=== PATIENT | female | born 1995 | race Caucasian/White ===

== ENCOUNTER → 2017-03-03 | Outpatient (REF) | payer OTHER ==
[2017-03-03 18:10] LABS: BASO % 0.2 % (0.0-1.0); EOS # 0.1 K/mm3 (0.0-0.50); EOS % 1.3 % (0.0-3.0); LARGE UNSTAINED CELL # 0.2 K/mm3 (0.0-0.4); LARGE UNSTAINED CELL % 1.7 % (0.0-4.0); LYMPH # 2.8 K/mm3 (1.5-6.5); LYMPH % 32.9 % (24.0-44.0); MEAN CORPUSCULAR HEMOGLOBIN 30.2 pg (27.0-33.0); MEAN CORPUSCULAR HGB CONC 32.5 g/dl (32.0-36.5); MEAN CORPUSCULAR VOLUME 92.7 fl (80.0-96.0); MONO # 0.5 K/mm3 (0.0-0.8); MONO % 5.4 % (0.0-5.0); NEUTROPHILS % 58.5 % (36.0-66.0); PLATELET COUNT, AUTOMATED 238 k/mm3 (150-450); RED CELL DISTRIBUTION WIDTH 12.2 % (11.5-14.5); WHITE BLOOD COUNT 8.6 K/mm3 (4.0-10.0)
[2017-03-03 18:20] LABS: ALBUMIN 4.1 GM/DL (3.2-5.2); ALBUMIN/GLOBULIN RATIO 1.17 (1.00-1.93); ALKALINE PHOSPHATASE 74 U/L (45-117); ALT/SGPT 21 U/L (12-78); AMYLASE 55 U/L (25-115); ANION GAP 6 MEQ/L (8-16); AST/SGOT 14 U/L (15-37); BILIRUBIN,TOTAL 0.3 MG/DL (0.2-1.0); BLOOD UREA NITROGEN 14 MG/DL (7-18); CALCIUM LEVEL 8.7 MG/DL (8.5-10.1); CARBON DIOXIDE LEVEL 27 MEQ/L (21-32); CHLORIDE LEVEL 106 MEQ/L (98-107); CREATININE FOR GFR 0.84 MG/DL (0.55-1.02); FERRITIN 27 NG/ML (8-252); GLOMERULAR FILTRATION RATE > 60.0 (>60); GLUCOSE, FASTING 93 MG/DL (70-105); MAGNESIUM LEVEL 2.1 MG/DL (1.8-2.4); SODIUM LEVEL 139 MEQ/L (136-145); THYROXINE (T4) 7.9 UG/DL (4.5-12.0); TOTAL PROTEIN 7.6 GM/DL (6.4-8.2)
== END ==
LOC: M SFHCCLAY 14:09
PROVIDERS: ATTEND Family Medicine
DX: R10.84 Generalized abdominal pain (principal); R53.83 Other fatigue

== ENCOUNTER → 2017-05-31 | Outpatient (REF) | payer OTHER | LOC: M SFHCLERA 11:53 | PROVIDERS: ATTEND Nurse Practitioner Family | DX: R10.9 Unspecified abdominal pain (principal) ==

== ENCOUNTER 2017-08-17 19:54 | Emergency (ER) | payer MEDICAID, OTHER, SELFPAY ==
[~2017-08-17] VITALS: Ht 162.6 cm; Wt 63.6 kg
[2017-08-17 19:55] VITALS: BP 143/76
== END 2017-08-17 22:23 | disposition left against medical advice (07) ==
LOC: M ED 19:54
DX: R10.9 Unspecified abdominal pain (principal); Z53.21 Procedure and treatment not carried out due to patient leaving prior to being seen by health care provider

== ENCOUNTER → 2017-09-30 | Outpatient (REF) | payer MEDICAID, OTHER | LOC: M SFHCLERA 11:57 | PROVIDERS: ATTEND Nurse Practitioner Family | DX: J02.9 Acute pharyngitis, unspecified (principal); L29.8 Other pruritus ==

== ENCOUNTER → 2018-12-09 | Outpatient (REF) | payer OTHER, MEDICAID | LOC: M LAB REF 12:38 | PROVIDERS: ATTEND Specialist | DX: R87.613 High grade squamous intraepithelial lesion on cytologic smear of cervix (HGSIL) (principal) ==

== ENCOUNTER → 2018-12-29 | Outpatient (CLI) | payer OTHER ==
--- NOTE | 2018-12-29 11:30 | REP ---
Pelvic ultrasound including transabdominal, endovaginal and Doppler ultrasound assessment for pelvic and perineal pain: The bladder is adequately distended. The uterus is anteverted. The uterus is normal size measuring 5.9 x 2.6 x 4.0 cm. The endometrium is not thickened measuring 4 mm. There is an IUD in the endometrial canal in satisfactory position. Right ovary: The right ovary measures 2.4 by 1.0 by 1.7 cm and is normal size. There is no dominant mass or cyst. There is vascular flow with the Doppler resistive index of the parenchymal arteries measuring 0.50. Left ovary: The left ovary measures 3.6 by 2.7 x 3.6 cm and is normal size. There is a cyst measuring up to 2.8 cm in diameter. There is no dominant mass. There is vascular flow with the Doppler resistive index of the parenchymal arteries measuring 0.40. There is no free fluid in the pelvis. Impression: There is a 2.8 cm left ovarian cyst. There is an IUD in satisfactory position within the endometrial canal. Electronically Signed by Kamron Dalton MD 12/29/2018 11:22 A
== END ==
LOC: M RAD 09:53
PROVIDERS: ATTEND Specialist
DX: R10.2 Pelvic and perineal pain (principal); N83.202 Unspecified ovarian cyst, left side; Z97.5 Presence of (intrauterine) contraceptive device

== ENCOUNTER → 2019-03-01 | Outpatient (REF) | payer OTHER, MEDICAID | LOC: M SFHCCLAY 08:10 | PROVIDERS: ATTEND Family Medicine | DX: Z68.31 Body mass index [BMI] 31.0-31.9, adult (principal) ==

== ENCOUNTER → 2019-04-21 | Outpatient (REF) | payer OTHER, MEDICAID | LOC: M LAB REF 18:47 | PROVIDERS: ATTEND Specialist | DX: Z12.4 Encounter for screening for malignant neoplasm of cervix (principal) ==

== ENCOUNTER → 2020-01-20 | Outpatient (REF) | payer OTHER, MEDICAID | LOC: M SFHCWAGY 19:27 | PROVIDERS: ATTEND Nurse Practitioner Family | DX: Z12.4 Encounter for screening for malignant neoplasm of cervix (principal) ==

== ENCOUNTER → 2020-05-04 | Outpatient (REF) | payer OTHER | LOC: M LABDRAWC 11:10 | PROVIDERS: ATTEND Advanced Practice Midwife | DX: N91.2 Amenorrhea, unspecified (principal) ==

== ENCOUNTER 2020-05-06 13:43 | Emergency (ER) | payer OTHER ==
[~2020-05-06] VITALS: Ht 162.6 cm; Wt 75.0 kg
[2020-05-06 14:14] LABS: BASO % 0.2 % (0.0-1.0); EOS % 0.4 % (0.0-3.0); HEMATOCRIT 41.5 % (36.0-47.0); HEMOGLOBIN 14.3 g/dl (12.0-15.5); LYMPH # 3.2 10^3/uL (1.5-5.0); LYMPH % 30.8 % (24.0-44.0); MEAN CORPUSCULAR HEMOGLOBIN 31.2 pg (27.0-33.0); MEAN CORPUSCULAR HGB CONC 34.5 g/dl (32.0-36.5); MEAN CORPUSCULAR VOLUME 90.4 fl (80.0-96.0); MONO # 0.9 10^3/uL (0.0-0.8); MONO % 8.3 % (0.0-5.0); NEUTROPHILS # 6.2 10^3/uL (1.5-8.5); NEUTROPHILS % 60.1 % (36.0-66.0); PLATELET COUNT, AUTOMATED 252 10^3/uL (150-450); RED BLOOD COUNT 4.59 10^6/uL (4.00-5.40); WHITE BLOOD COUNT 10.4 10^3/uL (4.0-10.0)
[2020-05-06 14:39] LABS: BLOOD UREA NITROGEN 17 MG/DL (7-18); CALCIUM LEVEL 9.3 MG/DL (8.5-10.1); CARBON DIOXIDE LEVEL 24 MEQ/L (21-32); CHLORIDE LEVEL 109 MEQ/L (98-107); CREATININE FOR GFR 0.78 MG/DL (0.55-1.30); GLOMERULAR FILTRATION RATE > 60.0 (>60); GLUCOSE, FASTING 92 MG/DL (70-100); HCG, SERUM QUANTITATIVE 4 MIU/ML; POTASSIUM SERUM 3.7 MEQ/L (3.5-5.1); SODIUM LEVEL 138 MEQ/L (136-145)
[2020-05-06 16:08] VITALS: BP 142/86
--- NOTE | 2020-05-06 23:03 | REP ---
FIRST TRIMESTER OBSTETRIC SONOGRAPHY: HISTORY: Vaginal bleeding. 4 weeks gestation. Beta hCG level 2 days prior 35. FINDINGS: Transabdominal and transvaginal scanning are performed. Uterus is normal in size and empty with dimensions of 7.9 x 2.9 x 4.0 cm. Endometrial echo is 0.7 cm thick. No intrauterine gestational sac is seen. No free fluid is seen. No focal uterine mass is observed. Normal ovaries are seen. Right ovarian dimensions are 1.9 x 1.9 x 1.9 cm. Left ovary measures 2.7 x 1.5 x 2.1 cm. IMPRESSION: No morphologic abnormality seen. No gestational sac noted within the uterus. No free fluid or adnexal mass. Electronically Signed by Abelino Dawn MD 05/07/2020 07:59 A
== END 2020-05-06 16:12 | disposition home or self-care (01) ==
LOC: M ED 13:43
DX: O02.81 Inappropriate change in quantitative human chorionic gonadotropin (hCG) in early pregnancy (principal)

== ENCOUNTER → 2020-07-20 | Outpatient (REF) | payer OTHER ==
[2020-07-20 19:33] LABS: BASO % 0.2 % (0.0-1.0); EOS # 0.1 10^3/uL (0.0-0.5); EOS % 0.4 % (0.0-3.0); HEMATOCRIT 41.4 % (36.0-47.0); HEMOGLOBIN 13.9 g/dl (12.0-15.5); LYMPH # 2.2 10^3/uL (1.5-5.0); LYMPH % 19.5 % (24.0-44.0); MEAN CORPUSCULAR HEMOGLOBIN 31.3 pg (27.0-33.0); MEAN CORPUSCULAR HGB CONC 33.6 g/dl (32.0-36.5); MEAN CORPUSCULAR VOLUME 93.2 fl (80.0-96.0); MONO # 0.7 10^3/uL (0.0-0.8); MONO % 6.3 % (0.0-5.0); NEUTROPHILS # 8.2 10^3/uL (1.5-8.5); NEUTROPHILS % 73.1 % (36.0-66.0); PLATELET COUNT, AUTOMATED 260 10^3/uL (150-450); RED BLOOD COUNT 4.44 10^6/uL (4.00-5.40); WHITE BLOOD COUNT 11.2 10^3/uL (4.0-10.0)
[2020-07-20 20:44] LABS: HEPATITIS C VIRUS ABY INDEX 0.1 INDEX (<0.8); HIV 1&2 SCREEN CENTAUR NEGATIVE (NEGATIVE)
[2020-07-20 21:24] LABS: CHLAMYDIA DNA AMPLIFICATION NEGATIVE (NEGATIVE); GC DNA AMPLIFICATION NEGATIVE (NEGATIVE)
== END ==
LOC: M LABSMT 16:51 → M LABDRAWC 16:51
PROVIDERS: ATTEND Advanced Practice Midwife
DX: Z34.81 Encounter for supervision of other normal pregnancy, first trimester (principal); Z3A.00 Weeks of gestation of pregnancy not specified

== ENCOUNTER → 2020-08-03 | Outpatient (REF) | payer OTHER | LOC: M SFHCLERA 15:48 | PROVIDERS: ATTEND Physician Assistant | DX: J02.9 Acute pharyngitis, unspecified (principal) ==

== ENCOUNTER → 2020-08-23 | Outpatient (CLI) | payer OTHER | LOC: M PLALAB 09:45 | PROVIDERS: ATTEND Advanced Practice Midwife | DX: Z34.81 Encounter for supervision of other normal pregnancy, first trimester (principal); Z3A.00 Weeks of gestation of pregnancy not specified ==

== ENCOUNTER → 2020-10-04 | Outpatient (CLI) | payer OTHER ==
--- NOTE | 2020-10-04 15:46 | REP ---
INDICATION: ANATOMY COMPARISON: None. TECHNIQUE: Transabdominal obstetrical ultrasound with color Doppler evaluation. FINDINGS: Examination demonstrates a single live intrauterine in variable presentation. motion is identified by technologist. Placenta is noted anterior and grade 0 without evidence for placenta previa or abruption. Amniotic fluid volume is normal. Cervix measures 3.7 cm in length and appears closed.. Gestational age by LMP 18 weeks 2 days with AMINA 03/05/2021. Gestational age by current measurements 18 weeks 2 days with AMINA 03/05/2021. FHR equals 155 beats per minute. BPD: 4.2 cm 18 weeks 4 days HC: 15.3 cm 18 weeks 2 days AC: 12.7 cm 18 weeks 2 days FL: 2.7 cm 18 weeks 1 day HL: 2.6 cm 18 weeks 2 days HC/AC: 1.21 Estimated weight 231 grams (42ndpercentile). Anatomical assessment demonstrates normal structures including cranium, choroid plexus, cavum, cerebellum/posterior fossa, four-chamber heart/left ventricular outflow tract, diaphragm, stomach, cord insertion/three-vessel cord, kidneys/bladder, and extremities. Limited incomplete evaluation of the facial features, right cardiac ventricular outflow tract and spine. IMPRESSION: Single live intrauterine in variable presentation demonstrating appropriate estimated weight. Anatomical limitations as described above warrant re-evaluation and follow-up. <Electronically signed by Vidal Hernandez > 10/04/20 [id number]
== END ==
LOC: M WHC 13:19
PROVIDERS: ATTEND Specialist
DX: Z34.02 Encounter for supervision of normal first pregnancy, second trimester (principal); Z36.89 Encounter for other specified antenatal screening; Z3A.18 18 weeks gestation of pregnancy

== ENCOUNTER → 2020-10-18 | Outpatient (CLI) | payer OTHER ==
--- NOTE | 2020-10-19 07:28 | REP ---
INDICATION: F/U ANATOMY COMPARISON: 10/04/2020 TECHNIQUE: Transabdominal obstetrical ultrasound with color Doppler evaluation. FINDINGS: Examination demonstrates a single live intrauterine in cephalic presentation. motion is identified by technologist. Placenta is noted anterior and grade 1 without evidence for placenta previa or abruption. Amniotic fluid volume is normal. Cervix measures 3.2 cm in length and appears closed.. Gestational age by LMP 20 weeks 2 days with AMINA 03/05/2021. Gestational age by current measurements 20 weeks 3 days with AMINA 03/04/2021. FHR equals 140 beats per minute. Estimated weight 324 grams (36thpercentile). Anatomical assessment demonstrates normal structures including facial features, heart/ventricular outflow tracts, anterior abdominal wall, and spine. IMPRESSION: Single live intrauterine in cephalic presentation demonstrating appropriate estimated weight and growth. In conjunction with prior examination anatomical assessment is essentially complete and normal. <Electronically signed by Vidal Hernandez > 10/19/20 [id number]
== END ==
LOC: M WHC 11:54
PROVIDERS: ATTEND Advanced Practice Midwife
DX: Z34.92 Encounter for supervision of normal pregnancy, unspecified, second trimester (principal); Z3A.20 20 weeks gestation of pregnancy

== ENCOUNTER → 2020-11-13 | Outpatient (CLI) | payer SELFPAY | LOC: M LABSMTC 14:02 | PROVIDERS: ATTEND Pediatrics | DX: Z20.828 Contact with and (suspected) exposure to other viral communicable diseases (principal) ==

== ENCOUNTER → 2020-12-20 | Outpatient (REF) | payer OTHER ==
[2020-12-20 15:29] LABS: HEMATOCRIT 38.5 % (36.0-47.0); HEMOGLOBIN 13.1 g/dl (12.0-15.5); MEAN CORPUSCULAR HEMOGLOBIN 32.1 pg (27.0-33.0); MEAN CORPUSCULAR VOLUME 94.4 fl (80.0-96.0); PLATELET COUNT, AUTOMATED 248 10^3/uL (150-450); RED BLOOD COUNT 4.08 10^6/uL (4.00-5.40); WHITE BLOOD COUNT 13.3 10^3/uL (4.0-10.0)
== END ==
LOC: M PLALAB 13:16
PROVIDERS: ATTEND Advanced Practice Midwife
DX: Z34.82 Encounter for supervision of other normal pregnancy, second trimester (principal); Z3A.25 25 weeks gestation of pregnancy

== ENCOUNTER 2021-01-06 18:47 | Outpatient (CLI) | payer OTHER ==
[~2021-01-06] VITALS: Ht 162.6 cm; Wt 87.3 kg
[2021-01-06 19:07] VITALS: BP 125/81
--- NOTE | 2021-01-06 20:32 | IPNPDOC ---
Obstetrical Progress Note Date of Service Jan 06, 2021 Subjective 25 yo at 31 weeks with decreased movement for 1 day. Objective Vital Signs Date Time Temp Pulse Resp B/P (MAP) Pulse Ox O2 Delivery O2 Flow Rate FiO2 01/06/21 19:07 98.5 104 16 125/81 (96) Assessment Variability: Moderate Accelerations: Positive Decelerations: None Heart Rate Tracing: Category I Tocometer Contractions: No Assessment and Plan Additional Comments 25 yo G1 at 31 weeks with decreased movement. Testing is reassuring. d/c home f-u office as scheduled ROSEMARY BETHEA MD Jan 06, 2021 20:32
== END 2021-01-06 20:20 | disposition home or self-care (01) ==
LOC: M LDO 18:47
PROVIDERS: ATTEND Specialist
DX: O36.8130 Decreased fetal movements, third trimester, not applicable or unspecified (principal); Z3A.31 31 weeks gestation of pregnancy

== ENCOUNTER 2021-02-01 11:59 | Outpatient (CLI) | payer OTHER ==
[~2021-02-01] VITALS: Ht 162.6 cm; Wt 91.7 kg
[2021-02-01 12:32] VITALS: BP 129/84
[2021-02-01] MEDS ORDERED: OMEP40CA97 PO (12:39)
[2021-02-01] MEDS ORDERED: PRENTAB9 PO (12:39)
[2021-02-01] MEDS ORDERED: ACET-897 PO (12:39)
[2021-02-01] MEDS ORDERED: LACTATED RINGER'S 1000 ML IV ONE (12:55)
[2021-02-01] MEDS ORDERED: BUTORPHANOL 2 MG/ML INJ (J0595) IV ONE (13:25)
[2021-02-01] MEDS ORDERED: PROMETHAZINE INJ 25 MG/ML VIAL (J2550) IV ONE (13:25)
[2021-02-01 13:34] LABS: HEMATOCRIT 40.3 % (36.0-47.0); HEMOGLOBIN 13.6 g/dl (12.0-15.5); MEAN CORPUSCULAR HEMOGLOBIN 31.1 pg (27.0-33.0); MEAN CORPUSCULAR HGB CONC 33.7 g/dl (32.0-36.5); MEAN CORPUSCULAR VOLUME 92.2 fl (80.0-96.0); PLATELET COUNT, AUTOMATED 245 10^3/uL (150-450); RED BLOOD COUNT 4.37 10^6/uL (4.00-5.40); WHITE BLOOD COUNT 14.6 10^3/uL (4.0-10.0)
[2021-02-01] MEDS: ONDANSETRON 4MG/2ML VIAL IV PRN ×2 (13:42→19:53)
--- NOTE | 2021-02-01 13:42 | IPNPDOC ---
Text Note Date of Service The patient was seen on 02/01/21. NOTE Subjective: Fernando is a 25-year-old female who is a at 35.2 weeks gestation with an AMINA of 03/06/21. She initiated care in her first trimester of with [facility]. Her has been complicated by a LEEP in 2018 and a positive COVID test on 11/12/21. She presents to L&D with complaints of flank pain since last night on her right side. She reports occasional cramping but denies contractions. She denies vaginal bleeding or leaking of fluid. She reports active movement. She reports pain to be constant and is an 8/10. She denies fever. Reports nausea and vomiting. Vomiting when she arrived to the unit. Was give Stadol and Phenergan and reports some pain relief for about 2 hours. MHx: Hx of abnormal pap smear, HPV/condyloma, IBS, GERD SHx: colonoscopy. LEEP FHx: diabetes, diverticulosis Social Hx:single, former smoker OBHx: ; 05/05 5 week SAB Objective: FHR: 135, moderate variability, positive accelerations, no decelerations. [place]: none VS/labs/sono: see below. General: Alert and oriented. Appears to be uncomfortable, sitting up and rocking back and forth on bed. Respiratory: Abdomen:gravid and soft to palpation. No tenderness with palpation. Musculoskeletal: +CVA tenderness right side, negative left side. SCE: 4/80/2 (ballotable), anterior, no show Bedside ultrasound: cephaic presentation with multiple pockets of fluid greater than 2 cm. Extremities: no edema. Assessment: IUP at 35.3, flank pain, rule out pyelonephritis/hydronephrosis/stones, rule out labor. Plan: UA and urine culture IV with LR bolus CBC and CMP GBS obtained Stadol and phenergan for pain Renal sono ordered. Betamethasone IM injection now and again in [address] Brizuela collaborated for plan of care. Rochepin IV ordered. Morphine 2 mg IV every 2 hours as needed for pain. Continue to monitor for labor. VS,Fishbone, I+O VS, Fishbone, I+O Vital Signs Date Time Temp Pulse Resp B/P (MAP) Pulse Ox O2 Delivery O2 Flow Rate FiO2 02/01/21 12:32 98.7 96 20 129/84 (99) KATERYNA KEITH CNM Feb 01, 2021 13:42
[2021-02-01 13:46] LABS: APPEARANCE, URINE HAZY (CLEAR); BACTERIA, URINE AUTO 1+ (NEGATIVE); BILIRUBIN, URINE AUTO NEGATIVE (NEGATIVE); BLOOD, URINE BLOOD NEGATIVE (NEGATIVE); COLOR, URINE YELLOW (YELLOW); GLUCOSE, URINE (UA) AUTO NEGATIVE (NEGATIVE); KETONE, URINE AUTO NEGATIVE (NEGATIVE); LEUKOCYTE ESTERASE, URINE AUTO TRACE (NEGATIVE); MUCUS, URINE SMALL (NEGATIVE); NITRITE, URINE AUTO NEGATIVE (NEGATIVE); PROTEIN, URINE AUTO NEGATIVE (NEGATIVE); RBC, URINE AUTO 1 /HPF (0-3); SPECIFIC GRAVITY URINE AUTO 1.013 (1.002-1.035); SQUAMOUS EPITHELIAL CELL UR AU 3 /HPF (0-6); UROBILINOGEN, URINE AUTO 0.2 mg/dL (0.0-2.0); WBC, URINE AUTO 1 /HPF (0-3)
[2021-02-01 14:01] LABS: ALBUMIN 2.6 GM/DL (3.2-5.2); ALT/SGPT 18 U/L (12-78); BILIRUBIN,TOTAL 0.2 MG/DL (0.2-1.0); BLOOD UREA NITROGEN 15 MG/DL (7-18); CALCIUM LEVEL 9.4 MG/DL (8.5-10.1); CARBON DIOXIDE LEVEL 23 MEQ/L (21-32); CHLORIDE LEVEL 108 MEQ/L (98-107); CREATININE FOR GFR 0.49 MG/DL (0.55-1.30); GLOMERULAR FILTRATION RATE > 60.0 (>60); GLUCOSE, FASTING 90 MG/DL (70-100); POTASSIUM SERUM 4.8 MEQ/L (3.5-5.1); SODIUM LEVEL 139 MEQ/L (136-145); TOTAL PROTEIN 7.1 GM/DL (6.4-8.2)
--- NOTE | 2021-02-01 14:19 | REP ---
INDICATION: flank pain. Third trimester . COMPARISON: None. TECHNIQUE: Urinary tract sonography. FINDINGS: Scanning of the level of the urinary bladder is unremarkable. The patient empty just prior to the study.. Renal cortical echogenicity pattern is normal bilaterally and contours are smooth. There is mild right-sided hydronephrosis. No left-sided hydronephrosis is seen. No renal calculus is observed. No mass or cyst is seen. heart rate is recorded at 139 beats per minute.. The right kidney measures 11.1 x 4.3 x 5.8 cm. Left renal dimensions are 11.4 x 5.1 x 5.1 cm. IMPRESSION: Mild right-sided hydronephrosis possibly related to . No stone disease is appreciated by ultrasound. Otherwise negative urinary tract sonography.. <Electronically signed by Andrei Dawn > 02/01/21 [id number]
[2021-02-01] MEDS: BETAMETHASONE SOLUSPAN 6MG/ML 5ML VIAL (J0702 PER 3MG) IM SCH (14:38)
[2021-02-01 14:51] VITALS: BP 132/83
[2021-02-01] MEDS ORDERED: cefTRIAXone SOD 1GM VIAL (J0696 PER 250MG) IM SCH (15:35)
[2021-02-01 15:48] VITALS: BP 120/67
[2021-02-01] MEDS: MORPHINE 4 MG/ML 1ML VIAL/SYRINGE (J2270) IV PRN (15:48)
[2021-02-01] MEDS: cefTRIAXone SOD 1 GM in D5W MINI-BAG PLUS 50 ML IV SCH (16:03)
[2021-02-01 17:57] VITALS: BP 126/75
[2021-02-01] MEDS ORDERED: PERCOCET 5MG/325MG TAB PO ONE (18:00)
[2021-02-01 19:45] VITALS: BP 137/72
[2021-02-01] MEDS ORDERED: diphenhydrAMINE 50MG CAP PO STA (21:03)
--- NOTE | 2021-02-01 21:43 | IPNPDOC ---
Text Note Date of Service The patient was seen on 02/01/21. NOTE Subjective: Fernando reports that after a dose of Morphine she was able to sleep and her pain did improve. She got into the tub for about an hour and reported it helped with her discomfort. Reported her pain was down to a 5/10. An hour later she reported her pain to be a 10/10 without grimacing. Given 2 Percocets to help with pain and Benadryl PO as she requested she wanted something to help her sleep. She continues to deny contractions, cramping or abdominal pain. Reports active movement. Denies vaginal bleeding or leaking of fluid. Objective: VS and labs: see below. FHR: 120, moderate variability, positive accelerations, no decelerations. [place]: irregular contractions 8-15 minutes Abdomen: soft and non-tender to touch Musculoskeletal: still +CVA right flank Sitting up, talking, laughing and not grimacing. Able to lay on her back (couldn't get comfortable before or lay on her back before) Assessment: IUP at 35.3 weeks gestation, not in active labor, flank pain Plan: Awaiting urine culture as the UA and renal ultrasound did not show any abnormalities. Continue with pain management as needed. Second dose of betamethasone due tomorrow at 1430 and Rochephin at 1600. Will continue to monitor for labor symptoms. VS,Fishbone, I+O VS, Fishbone, I+O Laboratory Tests 02/01/21 13:17 Vital Signs Date Time Temp Pulse Resp B/P (MAP) Pulse Ox O2 Delivery O2 Flow Rate FiO2 02/01/21 19:53 18 02/01/21 19:45 98.3 102 137/72 (93) 02/01/21 14:23 Room Air KATERYNA KEITH CNM Feb 01, 2021 21:43
[2021-02-02] VITALS (7 sets, daily range): BP systolic 99–132; BP diastolic 53–72
[2021-02-02] MEDS: ONDANSETRON 4MG/2ML VIAL IV PRN ×5 (00:33→22:12)
[2021-02-02] MEDS: MORPHINE 4 MG/ML 1ML VIAL/SYRINGE (J2270) IV PRN ×3 (00:34→09:03)
[2021-02-02] MEDS: PERCOCET 5MG/325MG TAB PO PRN ×3 (12:49→22:12)
[2021-02-02] MEDS: BETAMETHASONE SOLUSPAN 6MG/ML 5ML VIAL (J0702 PER 3MG) IM SCH (15:34)
[2021-02-02] MEDS: LR 1,000 ML IV SCH ×2 (15:35→22:12)
[2021-02-02] MEDS: cefTRIAXone SOD 1 GM in D5W MINI-BAG PLUS 50 ML IV SCH (17:20)
[2021-02-02] MEDS: DOCUSATE SODIUM 100MG CAPSULE PO SCH (20:53)
[2021-02-03 02:37] VITALS: BP 98/54
[2021-02-03] MEDS: ONDANSETRON 4MG/2ML VIAL IV PRN ×4 (02:39→20:43)
[2021-02-03] MEDS: PERCOCET 5MG/325MG TAB PO PRN ×5 (02:40→20:43)
[2021-02-03 06:45] LABS: BASO % 0.1 % (0.0-1.0); HEMATOCRIT 33.5 % (36.0-47.0); LYMPH % 11.4 % (24.0-44.0); MEAN CORPUSCULAR HEMOGLOBIN 30.7 pg (27.0-33.0); MEAN CORPUSCULAR HGB CONC 33.1 g/dl (32.0-36.5); MEAN CORPUSCULAR VOLUME 92.8 fl (80.0-96.0); MONO # 1.2 10^3/uL (0.0-0.8); MONO % 6.7 % (2.0-8.0); NEUTROPHILS # 13.9 10^3/uL (1.5-8.5); NEUTROPHILS % 80.9 % (36.0-66.0); PLATELET COUNT, AUTOMATED 211 10^3/uL (150-450); RED BLOOD COUNT 3.61 10^6/uL (4.00-5.40); WHITE BLOOD COUNT 17.2 10^3/uL (4.0-10.0)
[2021-02-03 07:11] LABS: ALBUMIN 2.3 GM/DL (3.2-5.2); ALT/SGPT 14 U/L (12-78); BLOOD UREA NITROGEN 11 MG/DL (7-18); CALCIUM LEVEL 8.5 MG/DL (8.5-10.1); CARBON DIOXIDE LEVEL 23 MEQ/L (21-32); CHLORIDE LEVEL 109 MEQ/L (98-107); CREATININE FOR GFR 0.59 MG/DL (0.55-1.30); GLOMERULAR FILTRATION RATE > 60.0 (>60); GLUCOSE, FASTING 112 MG/DL (70-100); POTASSIUM SERUM 4.2 MEQ/L (3.5-5.1); SODIUM LEVEL 140 MEQ/L (136-145); TOTAL PROTEIN 6.1 GM/DL (6.4-8.2)
[2021-02-03 07:15] LABS: BILIRUBIN,TOTAL < 0.1 MG/DL (0.2-1.0)
[2021-02-03 07:17] LABS: HEMOGLOBIN 11.1 g/dl (12.0-15.5)
[2021-02-03 08:14] VITALS: BP 97/56
[2021-02-03] MEDS: DOCUSATE SODIUM 100MG CAPSULE PO SCH ×2 (09:37→20:40)
[2021-02-03] MEDS: LR 1,000 ML IV SCH (09:37)
[2021-02-03 11:51] VITALS: BP 106/55
[2021-02-03 13:13] VITALS: BP 106/57
[2021-02-03] MEDS: TAMSULOSIN 0.4 MG CAP PO SCH (13:31)
--- NOTE | 2021-02-03 13:40 | IPNPDOC ---
Obstetrical Progress Note Date of Service Feb 03, 2021 Subjective Patient continues to complain of significant right sided flank/lower abdominal pain. Pain has focused along right inguinal ligament (had right flank pain upon admission). Still no c/o VB/LOF and she is feeling regular movement. No f/c/n/v/sob/cp. Currently complaining of constipation (hasn't had BM in 3 days). Objective Vital Signs Date Time Temp Pulse Resp B/P (MAP) Pulse Ox O2 Delivery O2 Flow Rate FiO2 02/03/21 12:22 18 02/03/21 11:52 Room Air 02/03/21 08:14 99.1 78 97/56 (70) Assessment Heart Rate Tracing: Category I Tocometer Frequency: irregular Assessment and Plan Additional Comments Continue with pain management and IV hydration. Reassuring status. No clinical evidence of significant infection/septicemia, abruption, or PTL. Working dx: right pyelonephritis/right nephrolithiasis. Rx for Flomax and Milk of CRISTOBAL Phillips DO Feb 03, 2021 13:40
[2021-02-03] MEDS ORDERED: MOM 30ML SUSPENSION UDC PO ONE ×2 (15:00→23:30)
[2021-02-03] MEDS: cefTRIAXone SOD 1 GM in D5W MINI-BAG PLUS 50 ML IV SCH (16:00)
[2021-02-03 16:21] VITALS: BP 128/82
[2021-02-03] MEDS: MORPHINE 4 MG/ML 1ML VIAL/SYRINGE (J2270) IV PRN (17:16)
[2021-02-03 22:06] VITALS: BP 95/58
[2021-02-04 01:04] VITALS: BP 110/64
[2021-02-04] MEDS: ONDANSETRON 4MG/2ML VIAL IV PRN ×3 (01:06→10:15)
[2021-02-04] MEDS: PERCOCET 5MG/325MG TAB PO PRN ×3 (01:07→10:15)
[2021-02-04 06:09] VITALS: BP 142/86
[2021-02-04 07:15] LABS: HEMATOCRIT 32.6 % (36.0-47.0); HEMOGLOBIN 10.8 g/dl (12.0-15.5); MEAN CORPUSCULAR HEMOGLOBIN 30.9 pg (27.0-33.0); MEAN CORPUSCULAR HGB CONC 33.1 g/dl (32.0-36.5); MEAN CORPUSCULAR VOLUME 93.4 fl (80.0-96.0); PLATELET COUNT, AUTOMATED 190 10^3/uL (150-450); RED BLOOD COUNT 3.49 10^6/uL (4.00-5.40); WHITE BLOOD COUNT 12.5 10^3/uL (4.0-10.0)
[2021-02-04 07:21] VITALS: BP 123/73
[2021-02-04 07:38] LABS: ALBUMIN 2.1 GM/DL (3.2-5.2); ALT/SGPT 15 U/L (12-78); AMYLASE 38 U/L (25-115); BILIRUBIN,TOTAL 0.1 MG/DL (0.2-1.0); BLOOD UREA NITROGEN 9 MG/DL (7-18); CALCIUM LEVEL 7.8 MG/DL (8.5-10.1); CARBON DIOXIDE LEVEL 24 MEQ/L (21-32); CHLORIDE LEVEL 107 MEQ/L (98-107); CREATININE FOR GFR 0.56 MG/DL (0.55-1.30); GLOMERULAR FILTRATION RATE > 60.0 (>60); GLUCOSE, FASTING 107 MG/DL (70-100); LIPASE 87 U/L (73-393); POTASSIUM SERUM 3.6 MEQ/L (3.5-5.1); SODIUM LEVEL 139 MEQ/L (136-145); TOTAL PROTEIN 5.5 GM/DL (6.4-8.2)
[2021-02-04] MEDS: DOCUSATE SODIUM 100MG CAPSULE PO SCH ×2 (08:01→08:10)
[2021-02-04] MEDS: TAMSULOSIN 0.4 MG CAP PO SCH (08:10)
[2021-02-04] MEDS: LR 1,000 ML IV SCH (08:11)
[2021-02-04] MEDS ORDERED: NITROFURANTOIN (MACROBID) 100 MG CAP PO SCH (09:00)
[2021-02-04] MEDS ORDERED: DOK1CAP7 PO (09:45)
[2021-02-04] MEDS ORDERED: NITR100C2 PO (09:45)
[2021-02-04] MEDS ORDERED: FLOM0.4C39 PO (09:45)
[2021-02-04] MEDS ORDERED: PERCOCET PO (09:45)
[2021-02-04 09:47] VITALS: BP 124/81
[2021-02-04] MEDS ORDERED: ONDA-83 PO (10:57)
--- NOTE | 2021-02-04 12:07 | IPNPDOC ---
Text Note Date of Service The patient was seen on 02/04/21. NOTE Subjective: Linda is a 25-year-old female who is 35+ weeks that presented to L&D 3 days ago with complaints of severe right sided flank pain. She received multiple doses of pain medication. Renal ultrasound was normal, urine contaminated, UA normal. IV antibiotics started. She had 3 doses and was switched to PO antibiotics today. Flomax was started yesterday. She was given betamethasone IM x2 doses due to cervix being 4/80/-2 cm. No change after initial exam. She reports pain still present in right flank. Denies contractions, vaginal bleeding or leaking of fluid. Reports active movement. Objective: FHR: 120, moderate variability, positive accelerations, no decelerations. [place]: none. General: Alert and oriented. Sitting up in bed. Does not appear to be in any distress. Respiratory: Regular rate without use of accessory muscles. Abdomen: gravid, soft, not tender with palpation Musculoskeletal: +CVA tenderness right side. Urine: sediment noted in urine Assessment: IUP at 35.6 weeks gestation, flank pain, likely kidney stone Plan: Patient is betamethasone complete as of 02/02/21. Reviewed option to go home. Patient and SO amenable to discharge. Script sent to pharmacy for Percocet, Zofran, Flomax, Macrobid. Reviewed access to care, kick counts, labor signs and danger signs to report. Discharged to home with precautions. She has an appointment tomorrow with Dr. Harding. Encouraged to keep her appointment tomorrow. VS,Fishbone, I+O VS, Fishbone, I+O Laboratory Tests 02/04/21 07:01 Vital Signs Date Time Temp Pulse Resp B/P (MAP) Pulse Ox O2 Delivery O2 Flow Rate FiO2 02/04/21 10:15 18 02/04/21 07:21 97.1 64 123/73 (90) 02/03/21 20:43 Room Air I&O- Last 24 Hours up to 6 AM 02/04/21 06:00 Intake Total 1451.5 ml Output Total 1200 ml Balance 251.5 ml KATERYNA KEITH CNM Feb 04, 2021 12:07
[2021-02-10] MEDS ORDERED: OXYC1TAB23 PO (15:56)
== END 2021-02-04 10:20 | disposition home or self-care (01) ==
LOC: M LDO 11:59 → M LDI 02-03 13:47 → UNDOADMIN 02-03 13:47 → M LDO 02-04 10:20 → UNDODISIN 02-04 10:20
PROVIDERS: ATTEND Advanced Practice Midwife
DX: O26.893 Other specified pregnancy related conditions, third trimester (principal); O99.891 Other specified diseases and conditions complicating pregnancy; R10.9 Unspecified abdominal pain; Z3A.35 35 weeks gestation of pregnancy
CPT/HCPCS: 36415; 59025; 76775; 80053; 81001; 82150; 83690; 85025; 85027; 87081; 87086; 96361; 96365; 96366; 96372; 96375; J0595; J0696; J0702; J2270; J2405

== ENCOUNTER 2021-02-07 20:23 | Outpatient (CLI) | payer OTHER ==
[~2021-02-07] VITALS: Ht 162.6 cm; Wt 92.6 kg
[~2021-02-07 20:23] MED LIST: ACET-897 PO; DOK1CAP7 PO; FLOM0.4C39 PO; NITR100C2 PO; OMEP40CA97 PO; ONDA-83 PO; PERCOCET PO; PRENTAB9 PO
[2021-02-07 20:37] VITALS: BP 127/80
[2021-02-07] MEDS ORDERED: TUMS1000 PO (20:49)
--- NOTE | 2021-02-07 21:53 | IPNPDOC ---
Obstetrical Progress Note Date of Service Feb 07, 2021 Subjective 25yo at 36+1 weeks EGA. Presents for a labor check. Reports frequent, painful uterine contractions. No loss of fluid or vaginal bleeding. Reports regular, frequent movement. ROS: No MCNEIL, visual changes, RUQ pain, sob, cp, n/v/f/c. complications: h/o nephrolithiasis h/o LEEP Betamethasone complete, 02/02/21 PMH: IBS, GERD SH: EGD, C-scope, LEEP OB: ENTRY REP: CT, HPV/condyloma Meds: PNV, Flomax (for working dx of nephrolithiasis) All: Latex O: Normotensive, normal HR, afebrile Abd: soft,nt,nd, no fundal tenderness SSE: cervix closed, no pooling, no fluid from os with valsalva. Negative Nitrazine, negative ferning. SVE: 3 cm, 50 %, -2, cephalic, intact EFM: Cat I / Reactive [place]: contraction pattern not present US,munoz: cephalic, MVP = 5.7cm (near head) A/P: 25 yo at 36+1 weeks EGA with no evidence of active labor or ROM. Reassuring maternal and status. -Routine third trimester precautions given. -Follow up in office as scheduled. Christian Brizuela DO FACOG. Objective Vital Signs Date Time Temp Pulse Resp B/P (MAP) Pulse Ox O2 Delivery O2 Flow Rate FiO2 02/07/21 20:37 97.3 88 14 127/80 (96) Assessment Heart Rate Tracing: Category I Tocometer Contractions: No Sterile Vaginal Examination Dilation: 3 cm (to4cm) Effacement (%): 50% Station: -2 Cervical Consistency: Soft Cervical Position: Anterior Postion/Presentation: Cephalic presentation Assessment and Plan Status: Reassuring CRISTOBAL BRIZUELA DO Feb 07, 2021 21:53
[2021-02-10] MEDS ORDERED: OXYC1TAB23 PO (15:56)
== END 2021-02-07 21:41 | disposition home or self-care (01) ==
LOC: M LDO 20:23
PROVIDERS: ATTEND Obstetrics & Gynecology
DX: O47.03 False labor before 37 completed weeks of gestation, third trimester (principal); Z3A.36 36 weeks gestation of pregnancy; O99.613 Diseases of the digestive system complicating pregnancy, third trimester; K21.9 Gastro-esophageal reflux disease without esophagitis; K58.9 Irritable bowel syndrome, unspecified

== ENCOUNTER → 2021-02-13 | Outpatient (REF) | payer OTHER ==
[~2021-02-13] MED LIST changes: +OXYC1TAB23 PO; +TUMS1000 PO
== END ==
LOC: M SFHCWAGY 13:29
PROVIDERS: ATTEND Advanced Practice Midwife
DX: Z36.89 Encounter for other specified antenatal screening (principal); Z3A.37 37 weeks gestation of pregnancy

== ENCOUNTER 2021-02-22 00:52 | Inpatient (IN) | payer OTHER ==
[~2021-02-22] VITALS: Ht 162.6 cm; Wt 92.7 kg
[2021-02-22] MEDS ORDERED: LACTATED RINGER'S 1000 ML IV STA (01:36)
[2021-02-22] MEDS ORDERED: LR 1,000 ML IV SCH (01:40)
[2021-02-22 01:50] LABS: HEMATOCRIT 36.1 % (36.0-47.0); HEMOGLOBIN 12.3 g/dl (12.0-15.5); MEAN CORPUSCULAR HEMOGLOBIN 30.8 pg (27.0-33.0); MEAN CORPUSCULAR HGB CONC 34.1 g/dl (32.0-36.5); MEAN CORPUSCULAR VOLUME 90.3 fl (80.0-96.0); PLATELET COUNT, AUTOMATED 211 10^3/uL (150-450); WHITE BLOOD COUNT 14.1 10^3/uL (4.0-10.0)
[2021-02-22] MEDS ORDERED: LIDOCAINE 1% MDV 20ML VIAL INFIL PRN (02:25)
[2021-02-22] MEDS ORDERED: CARBOPROST TROMETHAMINE 250 MCG/ML AMP IM PRN (02:25)
[2021-02-22] MEDS ORDERED: OXYTOCIN DRIP 30 UNITS in IV 1 EA IV PRN ×6 (02:25)
[2021-02-22] MEDS ORDERED: OXYTOCIN INJ 10 UNITS/ML VIAL (J2590) IV PRN (02:25)
[2021-02-22] MEDS ORDERED: METHYLERGONOVINE MALEATE 0.2 MG/ML VIAL (J2210) IM PRN (02:25)
[2021-02-22] MEDS ORDERED: TRANEXAMIC ACID INJection 1,000 MG in NS 100 ML IV PRN (02:25)
[2021-02-22] MEDS ORDERED: OXYTOCIN INJ 10 UNITS/ML VIAL (J2590) IM PRN (02:25)
[2021-02-22] MEDS ORDERED: FENTANYL 2MCG/ML ROPIVACAINE 0.2% IN 0.9% NACL 100ML IVBAG As Ordered ONE (02:30)
--- NOTE | 2021-02-22 02:41 | HPEPDOC ---
Obstetrical History & Physical General Date of Admission Feb 22, 2021 at 01:27 History of Present Illness 25-year-old G2, P0010 at 38+2 weeks gestation. Presents with frequent, painful uterine contractions over the past several hours, and also reports LOF/clear at 2330 02/21/21. Denies vaginal bleeding. Reports regular movement. ROS: no MCNEIL, cp, sob, fever/chills/nausea/vomiting. course: Nephrolithiasis PMH: IBS, GERD, Nephrolithiasis SH: LEEP Meds: vitamin All: NKDA [employer]IM[employer]PERATOR: h/o dysplasia, h/o chlamydia OB:, SAB 1 Sochx: No tobacco, alcohol or drug use FamHx: DM2, GI dz labs: Blood type B+, antibody screen negative, HepBsAg neg, HIV neg, rubella EQUIVOCAL, Hep C antibody negative, RPR nonreactive, CT/GC neg, urine culture negative, 1 hour glucose challenge test 108, GBS negative. imaging: no anomalies or placental abnormalities Past Medical History Allergies Coded Allergies: Latex, Natural Rubber (Verified Allergy, Unknown, 02/02/21) Medications Scheduled Calcium Carbonate (Tums Ultra) 400 Mg Tab.chew, 1,000 MG PO PRN No.137/Iron/Folic Acd ( Vitamin Tablet) 1 Each Tablet, 1 TAB PO DAILY Scheduled PRN Ondansetron HCl (Ondansetron HCl) 4 Mg Tablet, 1 TAB PO Q4HP PRN for nausea/vomiting Oxycodone HCl/Acetaminophen (Oxycodone-Acetaminophen 5-325) 1 Each Tablet, 1 TAB PO TIDP PRN for pain Oxycodone/Acetaminophen (Oxycodone-Acetaminophen 5-325) 1 Each Tablet, 1 TAB PO Q4HP PRN for MODERATE PAIN (PS 5-7) Physical Examination Physical Examination GENERAL: Alert and oriented times three. ABDOMEN: Gravid and non-tender to touch. FETUS: Is vertex (VTX) by sterile vaginal examination (SVE), fetus is vertex (VTX) by Georges. HEART RATE: Regular rate and rhythm. LUNGS: Clear to auscultation (CTA). EXTREMITIES: No edema. No clonus. SVE: 5-6cm, 100%, 0 ; grossly ruptured with clear fluid. No VB. Cephalic. EFM: Cat I [place]: Ctxs every 3-5 min Laboratory Data 24H LABS Laboratory Tests 2 02/22/21 01:40: Nucleated Red Blood Cells % (auto) 0.0 02/22/21 02:04: Serology Scanned Report Hepatitis B Testing CBC/BMP Laboratory Tests 02/22/21 01:40 Assessment/Plan Assessment 25yo at 38+3 weeks. Active labor w/ SROM. Reassuring maternal and status. Plan Admit and orient. Screed Person and consent. Labs and intravenous (IV) per unit protocol. Anticipate C-S as appropriate. CRISTOBAL SCHAFER DO Feb 22, 2021 02:41
[2021-02-22] MEDS ORDERED: diphenhydrAMINE 50MG/ML VIAL (J1200) IV PRN (03:05)
[2021-02-22] MEDS ORDERED: EPIDURAL COMMENT XX SCH (03:05)
[2021-02-22] MEDS ORDERED: ONDANSETRON 4MG/2ML VIAL IV PRN (03:05)
[2021-02-22] MEDS ORDERED: ePHEDrine SULFATE 25 MG/5 ML(5MG/ML) SYRINGE IV PRN (03:05)
[2021-02-22] MEDS ORDERED: LACTATED RINGER'S 1000 ML IV PRN (03:05)
[2021-02-22] MEDS ORDERED: EPIDURAL/PCA KEYS XX PRN (03:05)
[2021-02-22] MEDS ORDERED: REFRIGERATOR IV KEYS XX PRN (03:05)
[2021-02-22] MEDS ORDERED: NALOXONE INJ 0.4MG/1ML VIAL (J2310 PER 1MG) IV PRN (03:05)
[2021-02-22] MEDS: FENTANYL/ROPIVACAINE/NACL BAG 100 ML EPIDURAL SCH ×2 (03:31→13:08)
[2021-02-22] MEDS ORDERED: OXYTOCIN DRIP 30 UNITS in IV 1 EA IV SCH (12:45)
[2021-02-22] MEDS ORDERED: RHOGAM 300 MCG (1500 IU) INJ (J2790) IM SCH (14:25)
[2021-02-22] MEDS ORDERED: DOCUSATE SODIUM 100MG CAPSULE PO PRN (14:25)
[2021-02-22] MEDS ORDERED: IBUPROFEN 600MG TAB PO PRN (14:25)
[2021-02-22] MEDS ORDERED: MEASLES,MUMPS,RUBELLA VACCINE INJ (MMR-II) (90707) SC SCH (14:25)
[2021-02-22] MEDS ORDERED: METHYLERGONOVINE MALEATE 0.2 MG TAB PO PRN (14:25)
[2021-02-22] MEDS ORDERED: ACETAMINOPHEN TAB 650MG DOSE (2X325MG) PO PRN (14:25)
[2021-02-22] MEDS ORDERED: DIBUCAINE 1% OINTMENT 30GM TOP PRN (14:25)
--- NOTE | 2021-02-22 14:34 | DNPDOC ---
[facility] Delivery Note Delivery Note DATE OF DELIVERY: 02/22/2021 PREDELIVERY DIAGNOSIS: 38+3/7 weeks' gestation and labor. POST DELIVERY DIAGNOSIS: Delivered. PROCEDURE: Spontaneous vaginal delivery. PROVIDER: Karrie Melendez CNM ANESTHESIA: epidural. ESTIMATED BLOOD LOSS: 100 mL. FINDINGS: 6 pound 7 ounce, 2980gm male infant, Score 8/9, nuchal cord times 1, loose. DELIVERY SUMMARY: Patient is a 25-year-old 2 now para 1-0-1-1 who was admitted to labor and delivery for labor. Spontaneous rupture of membranes 2330, clear fluid. She utilized an epidural for labor coping. Fully dilated 1210 with reports of rectal pressure. Viable male delivered MARLENA, restituted to ROT through loose nuchal cord @ 1347. Shoulders delivered with ease. Spontaneous respirations, transitioned on maternal abdomen. Cord doubly clamped and cut once pulsations ceased by FOB under my direction. Apgars 8/9. Placenta vanegas, intact with 3v cord @ 1357. Fundus firmed with massage and premixed IV pitocin bolus. EBL 100ml. Cervix vagina and perineum inspected. 1st degree vaginal laceration and right labial abrasion reapproximated with 3-0 vicryl rapide after infiltration with lidocaine. Sponge, sharp and instrument count correct. Karrie Melendez CNM Feb 22, 2021 14:34
[2021-02-22] MEDS: IBUPROFEN 800 MG TAB PO PRN (17:08)
[2021-02-22 18:12] VITALS: BP 130/65
[2021-02-22] MEDS: ANUSOL HC CREAM 30GM TOP PRN (21:57)
[2021-02-22] MEDS: MOM 30ML SUSPENSION UDC PO PRN (21:57)
[2021-02-22] MEDS: ACETAMINOPHEN 500 MG TAB PO PRN (22:00)
[2021-02-23] MEDS: IBUPROFEN 800 MG TAB PO PRN ×2 (05:54→19:37)
[2021-02-23 06:00] VITALS: BP 132/63
--- NOTE | 2021-02-23 06:47 | IPNPDOC ---
Text Note Date of Service The patient was seen on 02/23/21. NOTE PP#1 Feels well. Breast and bottle feeding. Adequate pain management. Voiding VSS, afebrile, normotensive Breasts soft,nipples intact Fundus firm, NT, down 1 FB Lochia rubra light without odor Perineum well approximated without edema Legs negative PP #1 Routine care. Anticipate D/C in am VS,Fishbone, I+O VS, Fishbone, I+O Vital Signs Date Time Temp Pulse Resp B/P (MAP) Pulse Ox O2 Delivery O2 Flow Rate FiO2 02/23/21 06:00 98.0 101 18 132/63 (86) 95 Room Air I&O- Last 24 Hours up to 6 AM 02/23/21 06:00 Output Total 2550 ml Balance -2550 ml Karrie Melendez CNM Feb 23, 2021 06:47
[2021-02-23] MEDS: PRENATAL VITAMINS CHEWABLE TABLET PO SCH (11:22)
[2021-02-23 17:57] VITALS: BP 130/62
[2021-02-23 17:59] VITALS: BP 99/53
[2021-02-23 19:20] VITALS: BP 130/62
[2021-02-23] MEDS: MOM 30ML SUSPENSION UDC PO PRN (19:36)
[2021-02-23] MEDS: ANUSOL HC CREAM 30GM TOP PRN (19:46)
[2021-02-24] MEDS: IBUPROFEN 800 MG TAB PO PRN (04:57)
[2021-02-24 06:00] VITALS: BP 125/90
[2021-02-24] MEDS: PRENATAL VITAMINS CHEWABLE TABLET PO SCH (08:10)
[2021-02-24] MEDS: ACETAMINOPHEN 500 MG TAB PO PRN (08:11)
== END 2021-02-24 13:18 | disposition home or self-care (01) | DRG 560 ==
LOC: M LDO 00:52 → M LDI 01:27 → M OBS 16:01
PROVIDERS: ADMIT Obstetrics & Gynecology; ATTEND Obstetrics & Gynecology
PROC: 10E0XZZ Delivery of Products of Conception, External Approach (ICD-10-PCS; principal; 2021-02-22)
PROC: 0HQ9XZZ Repair Perineum Skin, External Approach (ICD-10-PCS; 2021-02-22)
DX: O69.81X0 Labor and delivery complicated by cord around neck, without compression, not applicable or unspecified (principal); O70.0 First degree perineal laceration during delivery; Z37.0 Single live birth; Z3A.38 38 weeks gestation of pregnancy

== ENCOUNTER → 2021-09-26 | Outpatient (CLI) | payer MEDICAID, OTHER ==
[~2021-09-26] MED LIST changes: +DOK1CAP4 PO; -DOK1CAP7 PO; +OMEP40CA4 PO; -OMEP40CA97 PO
[2021-09-26 17:08] LABS: GLUCOSE CHALLENGE TEST 1 HOUR 111 MG/DL (LESS THAN 140)
[2021-09-26 17:20] LABS: HEMATOCRIT 41.2 % (36.0-47.0); HEMOGLOBIN 13.7 g/dl (12.0-15.5); MEAN CORPUSCULAR HEMOGLOBIN 29.4 pg (27.0-33.0); MEAN CORPUSCULAR HGB CONC 33.3 g/dl (32.0-36.5); MEAN CORPUSCULAR VOLUME 88.4 fl (80.0-96.0); PLATELET COUNT, AUTOMATED 264 10^3/uL (150-450); RED BLOOD COUNT 4.66 10^6/uL (4.00-5.40); WHITE BLOOD COUNT 10.9 10^3/uL (4.0-10.0)
[2021-09-26 18:04] LABS: HEPATITIS C VIRUS ABY INDEX 0.1 INDEX (<0.8)
[2021-09-26 18:05] LABS: HIV 1&2 SCREEN CENTAUR NEGATIVE (NEGATIVE)
[2021-09-26 19:44] LABS: HEMOGLOBIN A1c 5.5 %
[2021-09-26 21:53] LABS: GC DNA AMPLIFICATION NEGATIVE (NEGATIVE)
== END ==
LOC: M PLALAB 11:26
PROVIDERS: ATTEND Advanced Practice Midwife
DX: Z34.91 Encounter for supervision of normal pregnancy, unspecified, first trimester (principal)

== ENCOUNTER → 2021-09-30 | Outpatient (REF) | payer OTHER ==
[2021-09-30 16:33] LABS: APPEARANCE, URINE HAZY (CLEAR); BACTERIA, URINE AUTO NEGATIVE (NEGATIVE); BILIRUBIN, URINE AUTO NEGATIVE (NEGATIVE); BLOOD, URINE BLOOD NEGATIVE (NEGATIVE); COLOR, URINE YELLOW (YELLOW); GLUCOSE, URINE (UA) AUTO NEGATIVE (NEGATIVE); KETONE, URINE AUTO NEGATIVE (NEGATIVE); LEUKOCYTE ESTERASE, URINE AUTO NEGATIVE (NEGATIVE); MUCUS, URINE SMALL (NEGATIVE); NITRITE, URINE AUTO NEGATIVE (NEGATIVE); PROTEIN, URINE AUTO NEGATIVE (NEGATIVE); RBC, URINE AUTO 0 /HPF (0-3); SPECIFIC GRAVITY URINE AUTO 1.024 (1.002-1.035); SQUAMOUS EPITHELIAL CELL UR AU 7 /HPF (0-6); UROBILINOGEN, URINE AUTO 0.2 mg/dL (0.0-2.0); WBC, URINE AUTO 1 /HPF (0-3)
== END ==
LOC: M PLALAB 10:46
PROVIDERS: ATTEND Advanced Practice Midwife
DX: R30.0 Dysuria (principal)

== ENCOUNTER 2021-10-08 08:27 | Outpatient (RCR) | payer MEDICAID, OTHER, SELFPAY | END 2021-10-15 | LOC: M PT 08:27 | PROVIDERS: ATTEND Advanced Practice Midwife | DX: M54.50 Low back pain, unspecified (principal) ==

== ENCOUNTER → 2021-10-15 | Outpatient (REF) | payer MEDICAID, OTHER ==
[2021-10-15 13:46] LABS: APPEARANCE, URINE HAZY (CLEAR); BACTERIA, URINE AUTO 1+ (NEGATIVE); BILIRUBIN, URINE AUTO NEGATIVE (NEGATIVE); BLOOD, URINE BLOOD NEGATIVE (NEGATIVE); COLOR, URINE YELLOW (YELLOW); GLUCOSE, URINE (UA) AUTO NEGATIVE (NEGATIVE); KETONE, URINE AUTO NEGATIVE (NEGATIVE); LEUKOCYTE ESTERASE, URINE AUTO 1+ (NEGATIVE); MUCUS, URINE SMALL (NEGATIVE); NITRITE, URINE AUTO NEGATIVE (NEGATIVE); PROTEIN, URINE AUTO NEGATIVE (NEGATIVE); RBC, URINE AUTO 2 /HPF (0-3); SPECIFIC GRAVITY URINE AUTO 1.026 (1.002-1.035); SQUAMOUS EPITHELIAL CELL UR AU 5 /HPF (0-6); UROBILINOGEN, URINE AUTO 0.2 mg/dL (0.0-2.0); WBC, URINE AUTO 6 /HPF (0-3)
== END ==
LOC: M SFHCWAGY 13:03
PROVIDERS: ATTEND Advanced Practice Midwife
DX: R10.30 Lower abdominal pain, unspecified (principal)

== ENCOUNTER → 2021-10-21 | Outpatient (CLI) | payer OTHER | LOC: M LAB 11:58 | PROVIDERS: ATTEND Advanced Practice Midwife | DX: Z34.81 Encounter for supervision of other normal pregnancy, first trimester (principal) ==

== ENCOUNTER → 2021-10-28 | Outpatient (CLI) | payer OTHER | LOC: M RAD 12:15 | PROVIDERS: ATTEND Advanced Practice Midwife | DX: M54.59 Other low back pain (principal) ==

== ENCOUNTER → 2021-11-13 | Outpatient (CLI) | payer OTHER ==
--- NOTE | 2021-11-13 11:43 | REP ---
INDICATION: SPOTTING COMPARISON: None. TECHNIQUE: Transabdominal and transvaginal obstetrical ultrasound with color Doppler evaluation. FINDINGS: Examination demonstrates a single live intrauterine in breech presentation. motion is identified by technologist. Placenta is noted posterior and grade 0 without evidence for placenta previa or abruption. Amniotic fluid volume is normal. Cervix measures 3.9 cm in length and appears closed.. Selected gestational age: 15 weeks 0 days with AMINA 05/07/2022. Gestational age by current measurements 16 weeks 2 days with AMINA 04/28/2022. FHR equals 149 beats per minute. IMPRESSION: Single live intrauterine in breech presentation. No gross abnormalities are identified. Complete anatomical assessment should be performed at 19-20 weeks. <Electronically signed by Vidal Hernandez > 11/13/21 [id number]
== END ==
LOC: M WHC 11:01
PROVIDERS: ATTEND Advanced Practice Midwife
DX: O26.852 Spotting complicating pregnancy, second trimester (principal); Z3A.15 15 weeks gestation of pregnancy

== ENCOUNTER 2021-11-14 09:50 | Outpatient (RCR) | payer OTHER | END 2021-11-15 | LOC: M PT 09:50 | PROVIDERS: ATTEND Advanced Practice Midwife | DX: M54.50 Low back pain, unspecified (principal) ==

== ENCOUNTER → 2021-12-02 | Outpatient (CLI) | payer OTHER | LOC: M RAD 17:15 | PROVIDERS: ATTEND Family Medicine | DX: Z53.9 Procedure and treatment not carried out, unspecified reason (principal); W19.XXXA Unspecified fall, initial encounter ==

== ENCOUNTER → 2021-12-11 | Outpatient (CLI) | payer OTHER | LOC: M WHC 08:27 | PROVIDERS: ATTEND Advanced Practice Midwife | DX: Z34.82 Encounter for supervision of other normal pregnancy, second trimester (principal); Z3A.15 15 weeks gestation of pregnancy ==

== ENCOUNTER → 2021-12-27 | Outpatient (CLI) | payer OTHER | LOC: M WHC 07:29 | PROVIDERS: ATTEND Obstetrics & Gynecology | DX: Z36.2 Encounter for other antenatal screening follow-up (principal); Z3A.23 23 weeks gestation of pregnancy ==

== ENCOUNTER → 2022-01-14 | Outpatient (REF) | payer OTHER ==
[2022-01-14 17:09] LABS: BASO % 0.1 % (0.0-1.0); EOS % 0.3 % (0.0-3.0); HEMATOCRIT 37.8 % (36.0-47.0); HEMOGLOBIN 12.5 g/dl (12.0-15.5); LYMPH # 2.2 10^3/uL (1.5-5.0); LYMPH % 16.2 % (24.0-44.0); MEAN CORPUSCULAR HEMOGLOBIN 29.7 pg (27.0-33.0); MEAN CORPUSCULAR HGB CONC 33.1 g/dl (32.0-36.5); MEAN CORPUSCULAR VOLUME 89.8 fl (80.0-96.0); MONO % 7.3 % (2.0-8.0); NEUTROPHILS # 10.1 10^3/uL (1.5-8.5); NEUTROPHILS % 75.5 % (36.0-66.0); PLATELET COUNT, AUTOMATED 276 10^3/uL (150-450); RED BLOOD COUNT 4.21 10^6/uL (4.00-5.40); WHITE BLOOD COUNT 13.3 10^3/uL (4.0-10.0)
[2022-01-14 17:24] LABS: HEMOGLOBIN A1c 5.8 %
[2022-01-14 17:35] LABS: ALBUMIN 2.8 GM/DL (3.2-5.2); ALT/SGPT 23 U/L (12-78); BILIRUBIN,TOTAL 0.2 MG/DL (0.2-1.0); BLOOD UREA NITROGEN 12 MG/DL (7-18); CARBON DIOXIDE LEVEL 26 MEQ/L (21-32); CHLORIDE LEVEL 105 MEQ/L (98-107); GLOMERULAR FILTRATION RATE > 60.0 (>60); GLUCOSE, FASTING 95 MG/DL (70-100); POTASSIUM SERUM 4.6 MEQ/L (3.5-5.1); RHEUMATOID FACTOR QUANT < 10.0 IU/ML (<15.0); SODIUM LEVEL 137 MEQ/L (136-145); TOTAL PROTEIN 7.1 GM/DL (6.4-8.2)
[2022-01-14 17:41] LABS: VITAMIN B12 LEVEL 301 PG/ML
[2022-01-14 17:43] LABS: FOLATE 12.3 NG/ML
[2022-01-14 18:21] LABS: ERYTHROCYTE SEDIMENTATION RATE 59 mm/hr (0-20)
== END ==
LOC: M LABDRAWC 15:40
PROVIDERS: ATTEND Psychiatry & Neurology Neurology
DX: G62.9 Polyneuropathy, unspecified (principal)

== ENCOUNTER → 2022-01-29 | Outpatient (CLI) | payer OTHER ==
[2022-01-29 13:46] LABS: HEMATOCRIT 35.3 % (36.0-47.0); HEMOGLOBIN 11.6 g/dl (12.0-15.5); MEAN CORPUSCULAR HEMOGLOBIN 29.4 pg (27.0-33.0); MEAN CORPUSCULAR HGB CONC 32.9 g/dl (32.0-36.5); MEAN CORPUSCULAR VOLUME 89.4 fl (80.0-96.0); PLATELET COUNT, AUTOMATED 265 10^3/uL (150-450); RED BLOOD COUNT 3.95 10^6/uL (4.00-5.40); WHITE BLOOD COUNT 11.9 10^3/uL (4.0-10.0)
[2022-01-29 15:22] LABS: GC DNA AMPLIFICATION NEGATIVE (NEGATIVE)
== END ==
LOC: M PLALAB 10:25
PROVIDERS: ATTEND Specialist
DX: Z34.82 Encounter for supervision of other normal pregnancy, second trimester (principal)

== ENCOUNTER → 2022-02-17 | Outpatient (CLI) | payer OTHER | LOC: M LAB 07:12 | PROVIDERS: ATTEND Obstetrics & Gynecology | DX: R73.09 Other abnormal glucose (principal) ==

== ENCOUNTER → 2022-03-27 | Outpatient (REF) | payer OTHER | LOC: M PLALAB 08:15 | PROVIDERS: ATTEND Advanced Practice Midwife | DX: Z36.85 Encounter for antenatal screening for Streptococcus B (principal) ==

== ENCOUNTER → 2022-03-28 | Outpatient (CLI) | payer OTHER | LOC: M WHC 07:14 | PROVIDERS: ATTEND Advanced Practice Midwife | DX: O24.419 Gestational diabetes mellitus in pregnancy, unspecified control (principal); Z3A.37 37 weeks gestation of pregnancy ==

== ENCOUNTER → 2022-04-16 | Outpatient (CLI) | payer OTHER | LOC: M WHC 09:20 | PROVIDERS: ATTEND Advanced Practice Midwife | DX: O24.419 Gestational diabetes mellitus in pregnancy, unspecified control (principal); Z3A.37 37 weeks gestation of pregnancy ==

== ENCOUNTER 2022-07-09 15:35 | Day surgery (SDC) | payer OTHER ==
[~2022-07-09] VITALS: Ht 162.6 cm; Wt 93.3 kg
[~2022-07-09 15:35] MED LIST changes: +IBUP-1022 PO; +PHEN15CA6 PO
[2022-07-09] MEDS ORDERED: LR 1,000 ML IV SCH ×2 (16:05→19:45)
[2022-07-09] MEDS ORDERED: ONDANSETRON 4MG 2ML VIAL IV STA (17:35)
[2022-07-09] MEDS ORDERED: KETOROLAC 30 MG/ML 1ML VIAL IV STA (17:35)
[2022-07-09] MEDS ORDERED: BUPIVACAINE HCL 0.25% 10ML VIAL As Ordered ONE (18:59)
[2022-07-09] MEDS ORDERED: METOCLOPRAMIDE INJ 10MG/2ML VIAL (J2765 PER 1) As Ordered ONE (19:26)
[2022-07-09] MEDS ORDERED: ROCURONIUM BROMIDE 50 MG/5 ML VIAL As Ordered ONE (19:26)
[2022-07-09] MEDS ORDERED: dexameTHASONE 4 MG/ML 1ML VIAL (J1100 PER 1MG) As Ordered ONE (19:26)
[2022-07-09] MEDS ORDERED: propofoL 200 MG/20 ML VIAL As Ordered ONE (19:26)
[2022-07-09] MEDS ORDERED: fentaNYL 100 MCG/2 ML INJECTION As Ordered ONE (19:26)
[2022-07-09] MEDS ORDERED: SUGAMMADEX SODIUM 500 MG/5 ML VIAL (BRIDION) As Ordered ONE (19:26)
[2022-07-09] MEDS ORDERED: ONDANSETRON 4MG 2ML VIAL As Ordered ONE (19:26)
[2022-07-09] MEDS ORDERED: LIDOCAINE 2% 100MG/5ML SDV (FOR ANES.) As Ordered ONE (19:26)
[2022-07-09] MEDS ORDERED: MIDAZOLAM INJ 2MG/2ML VIAL (J2250 PER 1MG) As Ordered ONE (19:26)
[2022-07-09] MEDS ORDERED: METOCLOPRAMIDE INJ 10MG/2ML VIAL (J2765 PER 1) IV PRN (19:45)
[2022-07-09] MEDS ORDERED: ONDANSETRON 4MG 2ML VIAL IV PRN (19:45)
[2022-07-09] MEDS ORDERED: fentaNYL 100 MCG/2 ML INJECTION IV PRN (19:45)
[2022-07-09] MEDS ORDERED: HYDROMORPHONE HCL 0.5 MG/ 0.5 ML SYRINGE (J1170 PER 1) IV PRN (19:45)
[2022-07-09] MEDS ORDERED: oxyCODONE 5MG TAB PO PRN (19:45)
[2022-07-09 20:30] VITALS: BP 108/67
== END 2022-07-09 20:50 | disposition home or self-care (01) ==
LOC: M SDC 15:35
PROVIDERS: ATTEND Specialist
DX: Z30.2 Encounter for sterilization (principal); K21.9 Gastro-esophageal reflux disease without esophagitis; R51.9 Headache, unspecified; F41.9 Anxiety disorder, unspecified; F32.A Depression, unspecified; F43.10 Post-traumatic stress disorder, unspecified; Z79.899 Other long term (current) drug therapy; Z91.040 Latex allergy status
CPT/HCPCS: 58661; 81025; 87635; 88302; J1100; J1885; J2250; J2405; J2765; J3010

== ENCOUNTER → 2022-07-30 | Outpatient (REF) | payer OTHER | LOC: M SFHCWAGY 10:25 | PROVIDERS: ATTEND Specialist | DX: N39.0 Urinary tract infection, site not specified (principal) ==

== ENCOUNTER → 2022-11-24 | Outpatient (REF) | payer OTHER | LOC: M SFHCWAGY 13:07 | PROVIDERS: ATTEND Specialist | DX: Z01.419 Encounter for gynecological examination (general) (routine) without abnormal findings (principal) ==

== ENCOUNTER → 2023-01-23 | Outpatient (REF) | payer OTHER ==
[2023-01-23 11:46] LABS: BASO % 0.2 % (0.0-1.0); EOS # 0.1 10^3/uL (0.0-0.5); EOS % 1.1 % (0.0-3.0); HEMATOCRIT 43.3 % (36.0-47.0); HEMOGLOBIN 13.9 g/dl (12.0-15.5); LYMPH % 23.7 % (24.0-44.0); MEAN CORPUSCULAR HEMOGLOBIN 27.6 pg (27.0-33.0); MEAN CORPUSCULAR HGB CONC 32.1 g/dl (32.0-36.5); MEAN CORPUSCULAR VOLUME 86.1 fl (80.0-96.0); MONO # 0.5 10^3/uL (0.0-0.8); MONO % 5.8 % (2.0-8.0); NEUTROPHILS # 5.9 10^3/uL (1.5-8.5); NEUTROPHILS % 68.8 % (36.0-66.0); PLATELET COUNT, AUTOMATED 273 10^3/uL (150-450); RED BLOOD COUNT 5.03 10^6/uL (4.00-5.40); WHITE BLOOD COUNT 8.6 10^3/uL (4.0-10.0)
[2023-01-23 11:53] LABS: ALBUMIN 3.7 G/DL (3.2-5.2); ALKALINE PHOSPHATASE 86 U/L (46-116); ALT/SGPT 39 U/L (7.0-40); AST/SGOT 29 U/L (<34); BILIRUBIN,TOTAL 0.5 MG/DL (0.3-1.2); BLOOD UREA NITROGEN 21 MG/DL (9-23); CALCIUM LEVEL 9.2 MG/DL (8.5-10.1); CARBON DIOXIDE LEVEL 26 MMOL/L (20-31); CHLORIDE LEVEL 106 MMOL/L (98-107); CREATININE FOR GFR 0.82 MG/DL (0.55-1.30); GLOMERULAR FILTRATION RATE > 60.0 (>60); GLUCOSE, FASTING 87 MG/DL (60-100); POTASSIUM SERUM 4.8 MMOL/L (3.5-5.1); SODIUM LEVEL 140 MMOL/L (136-145); TOTAL PROTEIN 7.1 G/DL (5.7-8.2)
[2023-01-23 11:56] LABS: HEMOGLOBIN A1c 5.6 % (4.0-6.0)
== END ==
LOC: M SFHCCLAY 07:55
PROVIDERS: ATTEND Family Medicine
DX: E66.09 Other obesity due to excess calories (principal); Z86.32 Personal history of gestational diabetes

== ENCOUNTER → 2023-03-12 | Outpatient (REF) | payer OTHER ==
[2023-03-12 20:17] LABS: GC DNA AMPLIFICATION NEGATIVE (NEGATIVE)
== END ==
LOC: M SFHCCLAY 17:47
PROVIDERS: ATTEND Family Medicine
DX: J02.9 Acute pharyngitis, unspecified (principal); N76.1 Subacute and chronic vaginitis

== ENCOUNTER → 2023-03-27 | Outpatient (REF) | payer OTHER | LOC: M SFHCCLAY 16:48 | PROVIDERS: ATTEND Physician Assistant Medical | DX: N89.8 Other specified noninflammatory disorders of vagina (principal) ==

== ENCOUNTER → 2023-04-09 | Outpatient (CLI) | payer OTHER | LOC: M CLY 15:36 | PROVIDERS: ATTEND Family Medicine | DX: M54.50 Low back pain, unspecified (principal) ==

== ENCOUNTER → 2023-05-21 | Outpatient (CLI) | payer OTHER | LOC: M CLY 08:16 | PROVIDERS: ATTEND Family Medicine | DX: R10.84 Generalized abdominal pain (principal) ==

== ENCOUNTER 2023-06-19 09:40 | Emergency (ER) | payer OTHER ==
[2023-06-19 09:51] VITALS: TEMP 97.2
[2023-06-19] MEDS ORDERED: CLON0.5T2 (10:00)
[2023-06-19] MEDS ORDERED: LEXA5TAB13 (10:00)
[2023-06-19 10:37] LABS: BASO # 0.1 10^3/uL (0.0-0.2); BASO % 0.5 % (0.0-1.0); EOS # 0.1 10^3/uL (0.0-0.5); EOS % 1.1 % (0.0-3.0); HEMOGLOBIN 13.3 g/dl (12.0-15.5); LYMPH # 3.1 10^3/uL (1.5-5.0); LYMPH % 31.8 % (24.0-44.0); MEAN CORPUSCULAR HEMOGLOBIN 28.8 pg (27.0-33.0); MEAN CORPUSCULAR HGB CONC 33.3 g/dl (32.0-36.5); MEAN CORPUSCULAR VOLUME 86.6 fl (80.0-96.0); MONO # 0.8 10^3/uL (0.0-0.8); MONO % 8.1 % (2.0-8.0); NEUTROPHILS # 5.7 10^3/uL (1.5-8.5); NEUTROPHILS % 58.2 % (36.0-66.0); PLATELET COUNT, AUTOMATED 214 10^3/uL (150-450); RED BLOOD COUNT 4.62 10^6/uL (4.00-5.40); WHITE BLOOD COUNT 9.8 10^3/uL (4.0-10.0)
[2023-06-19 11:09] LABS: HCG, SERUM QUALITATIVE NEGATIVE (NEGATIVE)
[2023-06-19 11:10] LABS: BLOOD UREA NITROGEN 18 MG/DL (9-23); CALCIUM LEVEL 8.5 MG/DL (8.5-10.1); CARBON DIOXIDE LEVEL 25 MMOL/L (20-31); CHLORIDE LEVEL 107 MMOL/L (98-107); CREATININE FOR GFR 0.63 MG/DL (0.55-1.30); GLOMERULAR FILTRATION RATE > 60.0 (>60); GLUCOSE, FASTING 101 MG/DL (60-100); POTASSIUM SERUM 4.7 MMOL/L (3.5-5.1); SODIUM LEVEL 142 MMOL/L (136-145)
[2023-06-19 11:12] LABS: FREE T4 0.89 NG/DL (0.89-1.76); THYROID STIMULATING HORMONE 1.893 uIU/ML (0.55-4.78)
[2023-06-19] MEDS ORDERED: NS 1,000 ML IV ONE (12:15)
[2023-06-19] MEDS ORDERED: ESCITALOPRAM OXALATE 5MG TABLET (LEXAPRO) PO ONE (12:15)
[2023-06-19 13:15] VITALS: BP 127/79
[2023-06-19 14:06] VITALS: O2SAT 98
== END 2023-06-19 14:40 | disposition home or self-care (01) ==
LOC: M ED 09:40
DX: R55 Syncope and collapse (principal); K21.9 Gastro-esophageal reflux disease without esophagitis; Z87.42 Personal history of other diseases of the female genital tract; Z91.048 Other nonmedicinal substance allergy status; Z91.040 Latex allergy status; F41.9 Anxiety disorder, unspecified; Z79.1 Long term (current) use of non-steroidal anti-inflammatories (NSAID); Z79.899 Other long term (current) drug therapy

== ENCOUNTER → 2023-07-21 | Day surgery (SDC) | payer OTHER ==
[~2023-07-21] VITALS: Ht 162.6 cm; Wt 85.3 kg
[~2023-07-21] MED LIST changes: +CLON0.5T2; +LEXA5TAB13; +NS 1,000 ML IV ONE; +clonazePAM 1 MG TAB PO STA
[2023-07-21 10:16] VITALS: TEMP 97.4
[2023-07-21 10:41] VITALS: BP 125/91; O2SAT 95
== END | disposition home or self-care (01) ==
LOC: M OPP 08:33
PROVIDERS: ATTEND Internal Medicine Gastroenterology
DX: K64.8 Other hemorrhoids (principal); K58.1 Irritable bowel syndrome with constipation; K30 Functional dyspepsia; F17.290 Nicotine dependence, other tobacco product, uncomplicated; Z79.52 Long term (current) use of systemic steroids; Z79.899 Other long term (current) drug therapy; Z91.040 Latex allergy status; Z91.048 Other nonmedicinal substance allergy status

== ENCOUNTER → 2023-08-25 | Outpatient (REF) | payer OTHER ==
[~2023-08-25] MED LIST changes: -NS 1,000 ML IV ONE; -clonazePAM 1 MG TAB PO STA
[2023-08-25 12:43] LABS: HEMOGLOBIN A1c 4.8 % (4.0-6.0)
[2023-08-25 12:55] LABS: FREE T4 0.97 NG/DL (0.89-1.76)
[2023-08-25 12:56] LABS: THYROID STIMULATING HORMONE 4.626 uIU/ML (0.55-4.78)
[2023-08-25 13:00] LABS: ALBUMIN 3.6 G/DL (3.2-5.2); ALKALINE PHOSPHATASE 88 U/L (46-116); ALT/SGPT 34 U/L (7.0-40); AST/SGOT 20 U/L (<34); BILIRUBIN,TOTAL 0.5 MG/DL (0.3-1.2); BLOOD UREA NITROGEN 20 MG/DL (9-23); CALCIUM LEVEL 9.5 MG/DL (8.5-10.1); CARBON DIOXIDE LEVEL 28 MMOL/L (20-31); CHLORIDE LEVEL 105 MMOL/L (98-107); CREATININE FOR GFR 0.74 MG/DL (0.55-1.30); GLOMERULAR FILTRATION RATE > 60.0 (>60); GLUCOSE, FASTING 104 MG/DL (60-100); POTASSIUM SERUM 4.5 MMOL/L (3.5-5.1); SODIUM LEVEL 141 MMOL/L (136-145); TOTAL PROTEIN 7.3 G/DL (5.7-8.2)
== END ==
LOC: M SFHCCLAY 08:08
PROVIDERS: ATTEND Family Medicine
DX: F41.9 Anxiety disorder, unspecified (principal); R73.01 Impaired fasting glucose; Z86.32 Personal history of gestational diabetes

== ENCOUNTER → 2023-12-01 | Outpatient (REF) | payer OTHER ==
[~2023-12-01] MED LIST changes: +BUPR75TA5 PO; +TRAZ-257; +XANA0.5T PO
== END ==
LOC: M SFHCWAGY 17:27
PROVIDERS: ATTEND Specialist
DX: Z01.419 Encounter for gynecological examination (general) (routine) without abnormal findings (principal); Z12.4 Encounter for screening for malignant neoplasm of cervix; Z77.9 Other contact with and (suspected) exposures hazardous to health

== ENCOUNTER → 2023-12-25 | Outpatient (REF) | payer OTHER | LOC: M SFHCCLAY 11:06 | PROVIDERS: ATTEND Family Medicine | DX: R00.2 Palpitations (principal); R61 Generalized hyperhidrosis; R73.01 Impaired fasting glucose ==

== ENCOUNTER → 2024-03-29 | Outpatient (REF) | payer OTHER | LOC: M SFHCWAGY 10:21 | PROVIDERS: ATTEND Specialist | DX: R10.2 Pelvic and perineal pain (principal) ==

== ENCOUNTER → 2024-03-30 | Outpatient (CLI) | payer OTHER | LOC: M WHC 09:43 | PROVIDERS: ATTEND Specialist | DX: N64.52 Nipple discharge (principal) ==

== ENCOUNTER → 2024-04-04 | Outpatient (REF) | payer OTHER ==
[2024-04-04 18:00] LABS: ALBUMIN 3.6 G/DL (3.2-5.2); ALKALINE PHOSPHATASE 82 U/L (46-116); ALT/SGPT 30 U/L (7.0-40); AST/SGOT 13 U/L (<34); BILIRUBIN,TOTAL 0.3 MG/DL (0.3-1.2); BLOOD UREA NITROGEN 19 MG/DL (9-23); CALCIUM LEVEL 9.2 MG/DL (8.5-10.1); CARBON DIOXIDE LEVEL 24 MMOL/L (20-31); CHLORIDE LEVEL 108 MMOL/L (98-107); CREATININE FOR GFR 0.87 MG/DL (0.55-1.30); GLOMERULAR FILTRATION RATE > 60.0 (>60); GLUCOSE, FASTING 81 MG/DL (60-100); SODIUM LEVEL 137 MMOL/L (136-145); TOTAL PROTEIN 7.1 G/DL (5.7-8.2)
[2024-04-04 18:01] LABS: FREE T4 0.99 NG/DL (0.89-1.76); PROLACTIN 3.29 NG/ML; THYROID STIMULATING HORMONE 1.368 uIU/ML (0.55-4.78)
[2024-04-04 18:03] LABS: TOTAL T3 91.5 NG/DL (60.0-181.0)
== END ==
LOC: M SFHCCLAY 09:41
PROVIDERS: ATTEND Family Medicine
DX: N64.52 Nipple discharge (principal); R00.2 Palpitations

== ENCOUNTER → 2024-07-21 | Outpatient (REF) | payer OTHER ==
[2024-07-21 13:56] LABS: HEMOGLOBIN A1c 5.3 % (4.0-6.0)
[2024-07-21 14:13] LABS: ALBUMIN 3.6 G/DL (3.2-5.2); ALKALINE PHOSPHATASE 79 U/L (46-116); ALT/SGPT 63 U/L (7.0-40); AST/SGOT 35 U/L (<34); BILIRUBIN,TOTAL 0.6 MG/DL (0.3-1.2); BLOOD UREA NITROGEN 19 MG/DL (9-23); CALCIUM LEVEL 9.7 MG/DL (8.5-10.1); CARBON DIOXIDE LEVEL 24 MMOL/L (20-31); CHLORIDE LEVEL 108 MMOL/L (98-107); CHOLESTEROL LEVEL 217 MG/DL (<200); CHOLESTEROL RISK RATIO 3.55 (<5); CREATININE FOR GFR 0.89 MG/DL (0.55-1.30); GLOMERULAR FILTRATION RATE > 60.0 (>60); GLUCOSE, FASTING 106 MG/DL (60-100); HDL CHOLESTEROL 61.1 MG/DL (>40); LDL CHOLESTEROL 111.1 MG/DL (<100); NON-HDL-C 155.9 MG/DL; POTASSIUM SERUM 4.4 MMOL/L (3.5-5.1); SODIUM LEVEL 138 MMOL/L (136-145); TOTAL PROTEIN 7.1 G/DL (5.7-8.2); TRIGLYCERIDES LEVEL 224 MG/DL (<150)
[2024-07-21 14:16] LABS: FOLLICLE STIMULATING HORMONE 6.2 mIU/ML; LUTEINIZING HORMONE 2.2 mIU/ML
[2024-07-21 14:17] LABS: FREE T4 1.19 NG/DL (0.89-1.76); PROLACTIN 7.58 NG/ML; TOTAL T3 109.1 NG/DL (60.0-181.0)
[2024-07-21 14:18] LABS: THYROID STIMULATING HORMONE 1.519 uIU/ML (0.55-4.78)
== END ==
LOC: M SFHCCLAY 08:03
PROVIDERS: ATTEND Family Medicine
DX: R73.01 Impaired fasting glucose (principal); Z86.32 Personal history of gestational diabetes; K76.0 Fatty (change of) liver, not elsewhere classified; N64.52 Nipple discharge

== ENCOUNTER → 2024-11-17 | Outpatient (CLI) | payer BC | LOC: M CLY 15:02 | PROVIDERS: ATTEND Family Medicine | DX: M53.3 Sacrococcygeal disorders, not elsewhere classified (principal) ==

== ENCOUNTER → 2024-12-14 | Outpatient (REF) | payer BC ==
[2024-12-14 17:45] LABS: BASO % 0.3 % (0.0-1.0); EOS % 0.4 % (0.0-3.0); HEMATOCRIT 42.3 % (36.0-47.0); HEMOGLOBIN 14.6 g/dl (12.0-15.5); LYMPH # 2.7 10^3/uL (1.5-5.0); LYMPH % 27.2 % (24.0-44.0); MEAN CORPUSCULAR HEMOGLOBIN 32.2 pg (27.0-33.0); MEAN CORPUSCULAR HGB CONC 34.5 g/dl (32.0-36.5); MEAN CORPUSCULAR VOLUME 93.4 fl (80.0-96.0); MONO # 0.8 10^3/uL (0.0-0.8); MONO % 7.8 % (2.0-8.0); NEUTROPHILS # 6.4 10^3/uL (1.5-8.5); NEUTROPHILS % 64.1 % (36.0-66.0); PLATELET COUNT, AUTOMATED 215 10^3/uL (150-450); RED BLOOD COUNT 4.53 10^6/uL (4.00-5.40)
== END ==
LOC: M SFHCCLAY 13:25
DX: R10.84 Generalized abdominal pain (principal)

== ENCOUNTER 2025-02-01 16:33 | Emergency (ER) | payer BC ==
[~2025-02-01] VITALS: Ht 162.6 cm; Wt 77.8 kg
[2025-02-01 17:50] LABS: BASO % 0.3 % (0.0-1.0); EOS # 0.1 10^3/uL (0.0-0.5); EOS % 0.8 % (0.0-3.0); HEMATOCRIT 42.9 % (36.0-47.0); HEMOGLOBIN 15.3 g/dl (12.0-15.5); LYMPH # 2.9 10^3/uL (1.5-5.0); LYMPH % 25.5 % (24.0-44.0); MEAN CORPUSCULAR HEMOGLOBIN 33.1 pg (27.0-33.0); MEAN CORPUSCULAR HGB CONC 35.7 g/dl (32.0-36.5); MEAN CORPUSCULAR VOLUME 92.9 fl (80.0-96.0); MONO # 0.6 10^3/uL (0.0-0.8); MONO % 5.5 % (2.0-8.0); NEUTROPHILS # 7.7 10^3/uL (1.5-8.5); NEUTROPHILS % 67.6 % (36.0-66.0); PLATELET COUNT, AUTOMATED 214 10^3/uL (150-450); RED BLOOD COUNT 4.62 10^6/uL (4.00-5.40); WHITE BLOOD COUNT 11.4 10^3/uL (4.0-10.0)
[2025-02-01 18:02] LABS: INR 0.91; PARTIAL THROMBOPLASTIN TIME 23.6 SECONDS (24.8-34.2); PROTHROMBIN TIME 12.5 SECONDS (12.5-14.5)
[2025-02-01 18:12] LABS: LIPASE 31 U/L (12-53)
[2025-02-01 18:15] LABS: ALBUMIN 3.6 G/DL (3.2-5.2); ALKALINE PHOSPHATASE 74 U/L (35-104); ALT/SGPT 24 U/L (7.0-40); AST/SGOT 18 U/L (<34); BILIRUBIN,TOTAL 0.3 MG/DL (0.3-1.2); BLOOD UREA NITROGEN 18 MG/DL (9-23); CALCIUM LEVEL 9.2 MG/DL (8.5-10.1); CARBON DIOXIDE LEVEL 22 MMOL/L (20-31); CHLORIDE LEVEL 106 MMOL/L (98-107); GLOMERULAR FILTRATION RATE > 60.0 (>60); GLUCOSE, FASTING 102 MG/DL (60-100); POTASSIUM SERUM 3.8 MMOL/L (3.5-5.1); SODIUM LEVEL 142 MMOL/L (136-145); TOTAL PROTEIN 7.5 G/DL (5.7-8.2)
[2025-02-01 18:16] LABS: HCG, SERUM QUALITATIVE NEGATIVE (NEGATIVE)
[2025-02-01 18:33] VITALS: BP 117/72; TEMP 98.6; O2SAT 97
== END 2025-02-01 18:34 | disposition home or self-care (01) ==
LOC: M ED 16:33
DX: R79.89 Other specified abnormal findings of blood chemistry (principal); K58.9 Irritable bowel syndrome, unspecified; K76.0 Fatty (change of) liver, not elsewhere classified; F41.9 Anxiety disorder, unspecified; F32.9 Major depressive disorder, single episode, unspecified

== ENCOUNTER → 2025-02-01 | Outpatient (REF) | payer BC ==
[2025-02-01 13:30] LABS: ALBUMIN 3.6 G/DL (3.2-5.2); ALKALINE PHOSPHATASE 70 U/L (35-104); ALT/SGPT 24 U/L (7.0-40); AST/SGOT 17 U/L (<34); BILIRUBIN,TOTAL 0.5 MG/DL (0.3-1.2); BLOOD UREA NITROGEN 18 MG/DL (9-23); CARBON DIOXIDE LEVEL 25 MMOL/L (20-31); CHLORIDE LEVEL 105 MMOL/L (98-107); CREATININE FOR GFR 0.85 MG/DL (0.55-1.30); GLOMERULAR FILTRATION RATE > 60.0 (>60); GLUCOSE, FASTING 101 MG/DL (60-100); POTASSIUM SERUM 4.3 MMOL/L (3.5-5.1); SODIUM LEVEL 140 MMOL/L (136-145); TOTAL PROTEIN 7.3 G/DL (5.7-8.2)
[2025-02-01 13:39] LABS: HEPATITIS B SURFACE ANTIGEN NEGATIVE (NEGATIVE)
[2025-02-01 14:00] LABS: HEPATITIS C VIRUS ABY INDEX 0.05 INDEX (<0.8)
[2025-02-01 14:01] LABS: HEPATITIS B CORE ANTIBODY IGM NEGATIVE (NEGATIVE)
== END ==
LOC: M SFHCCLAY 08:41
PROVIDERS: ATTEND Family Medicine
DX: K76.0 Fatty (change of) liver, not elsewhere classified (principal); R79.89 Other specified abnormal findings of blood chemistry

== ENCOUNTER → 2025-02-23 | Outpatient (REF) | payer BC ==
[2025-02-25 16:03] LABS: HPV APTIMA Not Detected (Not Detected)
== END ==
LOC: M SFHCWAGY 10:00
PROVIDERS: ATTEND Specialist
DX: Z01.419 Encounter for gynecological examination (general) (routine) without abnormal findings (principal)

== ENCOUNTER → 2025-07-11 | Outpatient (REF) | payer BC ==
[~2025-07-11] MED LIST changes: -FLOM0.4C39 PO; -IBUP-1022 PO; +IBUP600T42 PO; +TAMS-18 PO
[2025-07-11 19:16] LABS: ALT/SGPT 20 U/L (7.0-40); AST/SGOT 18 U/L (<34); CALCIUM LEVEL 9.5 MG/DL (8.5-10.1); CARBON DIOXIDE LEVEL 25 MMOL/L (20-31); CHLORIDE LEVEL 103 MMOL/L (98-107); CREATININE FOR GFR 0.87 MG/DL (0.55-1.30); GLOMERULAR FILTRATION RATE > 90.0 (>60); PLATELET COUNT, AUTOMATED 258 10^3/uL (150-450); POTASSIUM SERUM 4.2 MMOL/L (3.5-5.1); SODIUM LEVEL 138 MMOL/L (136-145)
[2025-07-11 19:20] LABS: FREE T4 1.08 NG/DL (0.89-1.76); TOTAL T3 103.0 NG/DL (60.0-181.0)
[2025-07-11 19:34] LABS: ESTIMATED AVERAGE GLUCOSE 103.0 MG/DL (60-110)
[2025-07-18 13:14] LABS: HLA-B27 Negative (Negative)
== END ==
LOC: M SFHCCLAY 13:25
PROVIDERS: ATTEND Family Medicine
DX: R00.2 Palpitations (principal); R73.01 Impaired fasting glucose; K58.2 Mixed irritable bowel syndrome; R79.89 Other specified abnormal findings of blood chemistry; R21 Rash and other nonspecific skin eruption

== ENCOUNTER → 2025-08-28 | Outpatient (REF) | payer BC | LOC: M SFHCCLAY 10:16 | PROVIDERS: ATTEND Physician Assistant | DX: S70.362A Insect bite (nonvenomous), left thigh, initial encounter (principal) ==